=== PATIENT | male | born 1955 | race Caucasian/White ===

== ENCOUNTER 2023-08-07 18:21 | Emergency (ER) | payer MEDICARE ==
[~2023-08-07] VITALS: Ht 175 cm; Wt 76.0 kg
[2023-08-07] MEDS ORDERED: NS IV 1000 ML 1,000 ML IV STA (18:42)
[2023-08-07] MEDS ORDERED: dexAMETHasone INJ 10 MG/ML 1 ML VIAL IV STA (18:42)
[2023-08-07] MEDS ORDERED: RT-Ipratropium/Albuterol NEB 3 ML VIAL INH ONE (18:45)
--- NOTE | 2023-08-07 18:48 | ED Dyspnea ---
General Chief Complaint: Cough/Cold/Flu Symptoms Stated Complaint: SOB,COUGH,WHEEZING Nursing Triage Note: Patient has presented to ER with cc of a cough for the last 4 weeks. He reports that he has been too busy to see his doctor the last 4 weeks. He is here in [place] visiting his daughter and he has been brought to ER for evaluation. He reports the cough and shortness of breath has gotten worse. Source of Information: Patient History of Present Illness Date Seen by Provider: Aug 07, 2023 Time Seen by Provider: 18:23 Initial Comments 68-year-old male presenting with complaints of cough and shortness of breath x 1 month. He lives in [facility] and works as [employer] for [employer]. He states he does have a history of asthma as a child and was told by his doctor that he has COPD. He usually has an albuterol inhaler but it ran out 2 weeks ago. Although he has had symptoms for over a month he has not gotten into see his doctor. He was visiting his daughter here in [place] for the weekend and was to go back tonight. However around 1700 he felt like he was having more difficulty breathing and was coughing more and his daughter made him come here to the emergency department to be evaluated. 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 This was done this summer 2022. He denies having any cardiac history or history of heart problems. He states that he did not have to do any chemotherapy or radiation. He also had his gallbladder removed. He has had COVID vaccinations and influenza vaccinations in the past but states that his last COVID shot was a year ago and he has not gotten a flu shot this year because he felt like he always got the flu when he took the flu shot in the past. Although he lives in [facility] he follows with providers in [facility] out of [place]. Timing/Duration: Increasing (Over the last month) Severity: Severe Activities at Onset: None Prior Episodes/Possible Cause: Chronic Episodes Modifying Factors: Worse With Activity, Worse With Coughing, Worse With Lying Down Associated Symptoms: Cough, Loss of Appetite (States that food does not taste good.), Wheezing Allergies and Home Medications Allergies Coded Allergies: No Known Drug Allergies (Unverified , 08/07/23) Patient Home Medication List Home Medication List Reviewed: Yes Azithromycin (Azithromycin) 500 Mg Tablet, 500 MG PO DAILY Prescribed by: KELLIE EASON on 08/07/231958 Prednisone (Prednisone) 20 Mg Tab, 40 MG PO DAILY Prescribed by: KELLIE EASON on 08/07/231958 Review of Systems Review of Systems Constitutional: No chills, No diaphoresis, No fever; malaise EENTM: nose congestion Respiratory: cough, phlegm, short of breath Cardiovascular: No chest pain, No edema Gastrointestinal: No abdominal pain; loss of appetite; No nausea, No vomiting Genitourinary: no symptoms reported Musculoskeletal: no symptoms reported Skin: No rash Psychiatric/Neurological: Denies Headache Past Zakvuxo-Iefxdi-Dygnol Hx Patient Social History Tobacco Use?: No Use of E-Cig and/or Vaping dev: No Substance use?: No Alcohol Use?: No Past Medical History Surgery/Hospitalization HX: Asthma as a child, COPD, Bladder wall cancer with resection February 2023, Cholecystectomy Physical Exam Vital Signs Vital Signs - First Documented 08/07/23 18:31 Pulse 114 Resp 20 B/P (MAP) 177/102 (127) Pulse Ox 95 O2 Delivery Room Air Capillary Refill : Height, Weight, BMI Height: '" Weight: lbs. oz. kg; 24.00 BMI Method: General Appearance: Anxious, Mild Distress (coughing and audible wheezes) HEENT: PERRL/EOMI, Pharynx Normal Neck: Full Range of Motion, Normal Inspection Respiratory: Chest Non Tender, Accessory Muscle Use, Decreased Breath Sounds; No Respiratory Distress, No Stridor; Wheezing Cardiovascular: Regular Rate, Rhythm, No Murmur, Normal Peripheral Pulses, Tachycardia Gastrointestinal: Normal Bowel Sounds, No Pulsatile Mass, Non Tender, Soft Rectal: Deferred Extremity: Normal Capillary Refill, Normal Inspection, Normal Range of Motion, Non Tender, No Calf Tenderness, No Pedal Edema Neurologic/Psychiatric: Alert, Oriented x3, supervisor billposting II-XII Norm as Tested Skin: Normal Color, Warm/Dry Focused Exam Lactate Level 08/07/23 18:40: Lactic Acid Level 1.44 Lactic Acid Level Laboratory Tests Test 08/07/23 18:40 Lactic Acid Level 1.44 MMOL/L (0.50-2.00) Progress/Results/Core Measures Results/Orders Lab Results Laboratory Tests Test 08/07/23 18:25 08/07/23 18:40 Range/Units Influenza Type A (RT-PCR) Not Detected Not Detecte Influenza Type B (RT-PCR) Not Detected Not Detecte SARS-CoV-2 RNA (RT-PCR) Detected H Not Detecte White Blood Count 11.4 H 4.3-11.0 10^3/uL Red Blood Count 4.96 4.30-5.52 10^6/uL Hemoglobin 15.8 13.3-17.7 g/dL Hematocrit 43 40-54 % Mean Corpuscular Volume 87 80-99 fL Mean Corpuscular Hemoglobin 32 25-34 pg Mean Corpuscular Hemoglobin Concent 37 H 32-36 g/dL Red Cell Distribution Width 12.8 10.0-14.5 % Platelet Count 312 130-400 10^3/uL Mean Platelet Volume 9.7 9.0-12.2 fL Immature Granulocyte % (Auto) 0 % Neutrophils (%) (Auto) 75 42-75 % Lymphocytes (%) (Auto) 11 L 12-44 % Monocytes (%) (Auto) 7 0-12 % Eosinophils (%) (Auto) 7 0-10 % Basophils (%) (Auto) 0 0-10 % Neutrophils # (Auto) 8.5 H 1.8-7.8 10^3/uL Lymphocytes # (Auto) 1.3 1.0-4.0 10^3/uL Monocytes # (Auto) 0.8 0.0-1.0 10^3/uL Eosinophils # (Auto) 0.8 H 0.0-0.3 10^3/uL Basophils # (Auto) 0.0 0.0-0.1 10^3/uL Immature Granulocyte # (Auto) 0.0 0.0-0.1 10^3/uL Sodium Level 141 135-145 MMOL/L Potassium Level 3.8 3.6-5.0 MMOL/L Chloride Level 107 98-107 MMOL/L Carbon Dioxide Level 24 21-32 MMOL/L Anion Gap 10 5-14 MMOL/L Blood Urea Nitrogen 20 H 7-18 MG/DL Creatinine 0.97 0.60-1.30 MG/DL Estimat Glomerular Filtration Rate 85 BUN/Creatinine Ratio 21 Glucose Level 105 70-105 MG/DL Lactic Acid Level 1.44 0.50-2.00 MMOL/L Calcium Level 9.3 8.5-10.1 MG/DL Corrected Calcium 9.1 8.5-10.1 MG/DL Magnesium Level 2.5 H 1.6-2.4 MG/DL Total Bilirubin 0.6 0.1-1.0 MG/DL Aspartate Amino Transf (AST/SGOT) 26 5-34 U/L Alanine Aminotransferase (ALT/SGPT) 35 0-55 U/L Alkaline Phosphatase 170 H 40-136 U/L C-Reactive Protein 0.52 H <0.50 MG/DL Pro-B-Type Natriuretic Peptide < 36.0 <125.0 PG/ML Total Protein 8.1 6.4-8.2 GM/DL Albumin 4.3 3.2-4.5 GM/DL My Orders Orders - KELLIE EASON MD Cbc And Automated Diff (08/07/23 18:40) Comprehensive Metabolic Panel (08/07/23 18:40) Blood Culture (08/07/23 18:40) Chest 1 View Ap/Pa Only (08/07/23 18:40) Ipratropium/Albuterol Inh Soln (Ipratrop (08/07/23 18:45) Magnesium (08/07/23 18:40) Ekg Tracing (08/07/23 18:40) O2 (08/07/23 18:40) Ed Iv/Invasive Line Start (08/07/23 18:40) Sputum Culture (08/07/23 18:40) Monitor-Rhythm Ecg Trace Only (08/07/23 18:40) Crp Fs (08/07/23 18:40) Lactic Acid Analyzer (08/07/23 18:40) Svn Small Volume Nebulizer (08/07/23 18:40) Covid 19 Inhouse Test (08/07/23 18:42) Influenza A And B By Pcr (08/07/23 18:42) Ns Iv 1000 Ml (Ns Iv 1000 Ml) (08/07/23 18:42) Dexamethasone Injection (Dexamethasone (08/07/23 18:42) Probnp Fs (08/07/23 19:11) Ceftriaxone Iv/Im (Ceftriaxone Iv/Im) (08/07/23 19:25) Azithromycin Tablet (Azithromycin Tabl (08/07/23 19:25) Rx-Albuterol Inhaler (Rx-Ventolin Hfa In (08/07/23 19:25) Nursing Communication (Order) (08/07/23 19:25) Medications Given in ED Current Medications Medications Dose Ordered Sig/Rafa Route Start Time Stop Time Status Last Admin Dose Admin Albuterol/ Ipratropium 3 ml ONCE ONCE INH 08/07/23 18:45 08/07/23 18:46 DC 08/07/23 18:49 3 ML Vital Signs/I&O 08/07/23 18:31 Pulse 114 Resp 20 B/P (MAP) 177/102 (127) Pulse Ox 95 O2 Delivery Room Air Blood Pressure Mean: 127 Progress Progress Note #1: Progress Note Differential diagnosis includes pneumonia, COPD exacerbation, sepsis, COVID, influenza, congestive heart failure. Obtain peripheral IV access and send labs for complete blood count, co mprehensive metabolic profile, CRP, blood cultures, lactic acid, proBNP. Sputum culture. Electrocardiogram to look for ischemia or arrhythmia. 1 view chest x- ray to look for pathology in the chest. Nasal swab for COVID and influenza. Administer normal saline 1 L IV fluid bolus for hydration, dexamethasone 10 mg IV for inflammation and trouble breathing, DuoNeb breathing treatment. Patient has an oxygen saturation of 95 to 96% on room air when he has the mask down and is taking deep breaths. He denies any home oxygen use. He states he has been out of his albuterol inhaler for at least 2 weeks. 1910 1 view chest x-ray read out as having increased airways consistent with bronchitis. No focal infiltrates or mass. Progress Note #2: Time: 19:30 Progress Note Complete blood count shows white blood cell count at upper limit of normal 11.4. He has a normal hemoglobin of 15.8. With his chest x-ray showing bronchitis and no acute infiltrate will proceed with starting a dose of Rocephin and Zithromax to help with inflammation and infection. Plan to continue a steroid burst to help with his bronchitis as well. Will provide a refill on his albuterol inhaler as well as a spacer to use with the albuterol inhaler. Plan 2 puffs every 4-6 hours as needed for shortness of breath and cough. Awaiting results of his COVID, influenza, comprehensive metabolic profile. Progress Note #3: Time: 19:59 Progress Note COVID swab did come back positive. Influenza was negative. Comprehensive metabolic profile did not show any acute significant electrolyte abnormalities or organ failure. He did have slight increase in his CRP to go along with an inflammatory process of the COVID. Lactic acid was negative at 1.4. As he has had symptoms for several weeks, although he tested positive for COVID tonight, will defer Paxlovid as his symptoms have been going on for so long. Will proceed with prednisone burst 40 mg p.o. daily x 5 days, azithromycin 500 mg p.o. daily x 4 more days, albuterol inhaler 2 puffs every 4-6 hours as needed for cough, wheezing, shortness of breath and use with a spacer. Encouraged to wear mask for the next 10 days and stay home and quarantine from work until Monday the . Be seen by his primary care provider or follow-up sooner if having worsening problems. Initial ECG Impression Date: Aug 07, 2023 Initial ECG Impression Time: 18:47 Initial ECG Rate: 110 Initial ECG Rhythm: S.Tach Initial ECG Comparisson: No Previous ECG Available Comment I sent my personal interpretation and review his electrocardiogram shows sinus tachycardia with a heart rate of 110 bpm. TX interval [address] elevation. QT interval 337 ms with a QTc interval 402 ms. He has no prior tracing available for comparison. Diagnostic Imaging Diagonstic Imaging: Xray Plain Films/CT/US/NM/MRI: chest Comments NAME: [facility] REC#: [id number] PT STATUS: REG ER : 1955 PHYSICIAN: KELLIE EASON MD ADMIT DATE: 08/07/23/ER FS Signed Date of Exam:08/07/23 CHEST 1 VIEW AP/PA ONLY INDICATION: One-month history of cough. COMPARISONS: None FINDINGS: Single view of chest of the cardiac contour is normal. There are slight prominent central lung markings with peribronchial cuffing. No consolidations are seen. There is no effusion or pneumothorax. Soft tissues and bony thorax are grossly normal. IMPRESSION: Central reactive airway changes such as seen with bronchitis noted. No confluent consolidations present. Dictated by: Dictated on workstation # [id number] Dict: 08/07/235 Trans: 08/07/231903 CVB [id number] Interpreted by: OSCAR KELLOGG MD Electronically signed by: OSCAR KELLOGG MD 08/07/23 190 Reviewed: Reviewed by Me Departure Impression Primary Impression: COVID-19 Additional Impressions: Upper respiratory infection with cough and congestion Bronchitis Disposition: 01 HOME, SELF-CARE Condition: Improved Departure-Patient Inst. Decision time for Depature: 19:59 [place]: [facility] [place] [facility] [place] Instructions: Bronchitis, Adult ED, Cough, Adult ED, How to Use a Metered Dose Inhaler ED, How to Use a Spacer, COVID-19 ED Add. Discharge Instructions: Your test for COVID did come back positive. You should continue to wear a mask for the next 10 days especially when you are around others. You should quarantine from work and could return on August 11. Take the full course of antibiotics to help treat for bronchitis and inflammation in your lungs. Try to stay well-hydrated and drink more fluids. Take the steroid burst over the next several days to help with the cough, congestion, wheezing and shortness of breath. Use the albuterol inhaler with spacer to use 2 puffs every 4-6 hours as needed for cough, wheezing, shortness of breath. Follow-up with your primary care providers for continued concerns and if not improving with treatment. All discharge instructions reviewed with patient and/or family. Voiced understanding. Scripts Azithromycin (Azithromycin) 500 Mg Tablet 500 MG PO DAILY for Bronchitis for 4 Days, #4 TAB 0 Refills Prov: KELLIE EASON MD 08/07/23 Prednisone (Prednisone) 20 Mg Tab 40 MG PO DAILY for bronchitis for 5 Days, #10 TAB 0 Refills Prov: KELLIE EASON MD 08/07/23 Work/School Note: Work Release Form Date Seen in the Emergency Department: Aug 07, 2023 Return to Work: Aug 11, 2023 Restrictions: Return-No Fever (24hrs) Other Restrictions Listed Below: Wear mask for next 10 days. May return to work 08/11. KELLIE EASON MD Aug 07, 2023 18:48
--- NOTE | 2023-08-07 19:04 | Diagnostic Imaging Report ---
INDICATION: One-month history of cough. COMPARISONS: None FINDINGS: Single view of chest of the cardiac contour is normal. There are slight prominent central lung markings with peribronchial cuffing. No consolidations are seen. There is no effusion or pneumothorax. Soft tissues and bony thorax are grossly normal. IMPRESSION: Central reactive airway changes such as seen with bronchitis noted. No confluent consolidations present. Dictated by: Dictated on workstation # [id number]
[2023-08-07 19:24] LABS: BASOPHILS % (AUTO) 0 % (0-10); EOSINOPHILS # (AUTO) 0.8 10^3/uL (0.0-0.3); EOSINOPHILS % (AUTO) 7 % (0-10); HEMATOCRIT 43 % (40-54); HEMOGLOBIN 15.8 g/dL (13.3-17.7); LYMPHOCYTES # (AUTO) 1.3 10^3/uL (1.0-4.0); LYMPHOCYTES % (AUTO) 11 % (12-44); MEAN CORPUSCULAR HEMOGLOBIN 32 pg (25-34); MEAN CORPUSCULAR HGB CONC 37 g/dL (32-36); MEAN CORPUSCULAR VOLUME 87 fL (80-99); MEAN PLATELET VOLUME 9.7 fL (9.0-12.2); MONOCYTES # (AUTO) 0.8 10^3/uL (0.0-1.0); MONOCYTES % (AUTO) 7 % (0-12); NEUTROPHILS # (AUTO) 8.5 10^3/uL (1.8-7.8); NEUTROPHILS % (AUTO) 75 % (42-75); PLATELET COUNT 312 10^3/uL (130-400); WHITE BLOOD COUNT 11.4 10^3/uL (4.3-11.0)
[2023-08-07] MEDS ORDERED: AZITHROMYCIN 250 MG TABLET PO STA (19:25)
[2023-08-07] MEDS ORDERED: cefTRIAXone IV/IM 1,000 MG in NS (IVPB) 50 ML 50 ML IV STA (19:25)
[2023-08-07] MEDS ORDERED: RX-ALBUTEROL INHALER 8.5 GM HFA (PROAIR) IH STA (19:25)
[2023-08-07 19:42] LABS: POTASSIUM 3.8 MMOL/L (3.6-5.0)
[2023-08-07 19:50] LABS: ALANINE AMINOTRANSFERASE 35 U/L (0-55); ALKALINE PHOSPHATASE 170 U/L (40-136); BILIRUBIN,TOTAL 0.6 MG/DL (0.1-1.0); BUN/CREATININE RATIO 21; CALCIUM 9.3 MG/DL (8.5-10.1); CARBON DIOXIDE 24 MMOL/L (21-32); CHLORIDE 107 MMOL/L (98-107); CREATININE SERUM 0.97 MG/DL (0.60-1.30); GFR ESTIMATED 85; GLUCOSE 105 MG/DL (70-105); MAGNESIUM 2.5 MG/DL (1.6-2.4); SODIUM 141 MMOL/L (135-145)
[2023-08-07 19:51] LABS: ALBUMIN 4.3 GM/DL (3.2-4.5); TOTAL PROTEIN 8.1 GM/DL (6.4-8.2)
[2023-08-07] MEDS ORDERED: PRD20T PO (19:59)
[2023-08-07] MEDS ORDERED: AZIT500T9 PO (19:59)
[2023-08-07 20:10] VITALS: BP 136/74
== END 2023-08-07 20:10 | disposition home or self-care (01) ==
LOC: ER FS 18:21
DX: U07.1 COVID-19 (principal); J44.9 Chronic obstructive pulmonary disease, unspecified; J06.9 Acute upper respiratory infection, unspecified; Z79.899 Other long term (current) drug therapy
CPT/HCPCS: 36415; 71045; 80053; 83605; 83735; 83880; 85025; 86141; 87040; 87636; 93005